=== PATIENT | male | born 1950 | race Caucasian/White ===

== ENCOUNTER 2016-09-08 19:03 | Emergency (ER) | payer SELFPAY ==
[2016-09-08 19:48] LABS: BASOPHILS 0.2 % (0.0-2.0); EOSINOPHILS 2.6 % (0-7); HEMATOCRIT 33.5 % (42.0-54.0); HEMOGLOBIN 10.5 g/dL (13.5-17.5); IMMATURE GRANULOCYTES 0.2 % (0-5); MCH 30.5 pg (26.0-34.0); MCHC 31.3 g/dL (31.0-37.0); MCV 97.4 fL (80.0-100.0); MEAN PLATELET VOLUME 9.6 fL (7.4-10.4); PLATELET COUNT 114 10x3/uL (130-400); RBC 3.44 10x6/uL (4.20-6.10); RDW 17.8 % (11.5-14.5); WBC 6.5 10x3/uL (4.8-10.8)
[2016-09-08 20:09] LABS: INR 1.02 (0.85-1.17); PROTIME 13.2 SECONDS (11.6-15.0)
[2016-09-08 20:10] LABS: APTT 34.1 SECONDS (22.8-39.4)
[2016-09-08 20:23] LABS: ALKALINE PHOSPHATASE 76 U/L (46-116); ALT (SGPT) 14 U/L (10-68); BILIRUBIN - TOTAL 0.31 mg/dL (0.2-1.3); CALC OSMOLALITY 283 mosm/kg (275-300); CALCIUM 8.2 mg/dL (8.5-10.1); CARBON DIOXIDE 28.7 mmol/L (21.0-32.0); CHLORIDE - SERUM 108 mmol/L (98-107); GLUCOSE 88 mg/dL (74-106); POTASSIUM - SERUM 3.5 mmol/L (3.5-5.1); PROTEIN - SERUM 5.2 g/dL (6.4-8.2); SODIUM 144 mmol/L (136-145); UREA NITROGEN 8 mg/dL (7-18); eGFR NON AFRICAN AMERICAN 79 mL/min (90-120)
[2016-09-08 20:28] LABS: APPEARANCE HAZY (CLEAR); BILIRUBIN NEGATIVE (NEGATIVE); COLOR DK YELLOW (YELLOW); GLUCOSE NEGATIVE (NEGATIVE); KETONE NEGATIVE (NEGATIVE); LEUKOCYTE ESTERASE 2+ (NEGATIVE); NITRITE NEGATIVE (NEGATIVE); PROTEIN TRACE mg/dL (NEGATIVE); SPECIFIC GRAVITY 1.015 (1.005-1.020); UROBILINOGEN NORMAL (NORMAL)
[2016-09-08 20:29] LABS: BACTERIA MODERATE /hpf (NONE SEEN); RED CELLS - URINE >50 /hpf (0-5)
== END 2016-09-08 21:56 | disposition home or self-care (01) ==
LOC: D.ER 19:03
PROVIDERS: Emergency Medicine
DX: R31.9 Hematuria, unspecified (principal); S37.39XA Other injury of urethra, initial encounter; X58.XXXA Exposure to other specified factors, initial encounter; Y93.89 Activity, other specified; Y92.89 Other specified places as the place of occurrence of the external cause; N39.0 Urinary tract infection, site not specified; F17.200 Nicotine dependence, unspecified, uncomplicated

== ENCOUNTER 2018-11-25 07:20 | Outpatient (CLI) | payer MEDICARE | END 2018-11-25 13:51 | disposition home or self-care (01) | LOC: D.SP 07:20 | DX: E27.9 Disorder of adrenal gland, unspecified (principal); Z01.812 Encounter for preprocedural laboratory examination ==

== ENCOUNTER → 2018-12-07 09:36 | Outpatient (CLI) | payer MEDICARE ==
[2018-11-25 09:21] VITALS: BMI 26.6
[~2018-12-07 09:36] MED LIST: CENTRUM MEN'S1 EACH PO; CRESTOR40 MG PO; HCTZ25 MG PO; LEVOXYL25 MCG PO; RANITIDINE HCL150 M1 PO; REMERON30 MG PO; TOPROL XL100 MG PO; TRAZODONE HCL150 MG PO
== END | disposition home or self-care (01) ==
LOC: D.US 11-23 08:30 → D.RAD 11-23 08:30 → D.US 11-23 09:00 → D.RAD 11-23 09:30 → D.US 09:36
PROVIDERS: ATTEND Thoracic Surgery (Cardiothoracic Vascular Surgery)
DX: I65.23 Occlusion and stenosis of bilateral carotid arteries (principal); I73.9 Peripheral vascular disease, unspecified; J90 Pleural effusion, not elsewhere classified

== ENCOUNTER → 2018-12-21 09:31 | Outpatient (CLI) | payer MEDICARE ==
[2018-11-25 09:21] VITALS: BMI 26.6
== END | disposition home or self-care (01) ==
LOC: D.CT 09:31
PROVIDERS: ATTEND Internal Medicine Cardiovascular Disease
DX: I65.23 Occlusion and stenosis of bilateral carotid arteries (principal)

== ENCOUNTER → 2019-06-16 09:55 | Outpatient (CLI) | payer MEDICARE ==
[2018-11-25 09:21] VITALS: BMI 26.6
== END | disposition home or self-care (01) ==
LOC: D.CT 09:55
PROVIDERS: ATTEND Thoracic Surgery (Cardiothoracic Vascular Surgery)
DX: I71.4 Abdominal aortic aneurysm, without rupture (principal)

== ENCOUNTER 2019-07-21 08:22 | Inpatient (IN) | payer MEDICARE, OTHER ==
[~2019-07-21] VITALS: Ht 175.3 cm; Wt 73.1 kg
[2019-07-21] MEDS ORDERED: SYNTHROID50 MCG PO (08:59)
[2019-07-21 10:06] LABS: BASOPHILS 0.1 % (0-2); HEMOGLOBIN 15.4 g/dL (13.5-17.5); IMMATURE GRANULOCYTES 0.1 % (0-5); LYMPHOCYTES 20.6 % (15-50); MCH 30.6 pg (26.0-34.0); MCHC 33.5 g/dL (31.0-37.0); MCV 91.3 fL (80.0-100.0); MEAN PLATELET VOLUME 10.3 fL (7.4-10.4); MONOCYTES 6.1 % (2-11); NEUTROPHILS 71.1 % (40-80); PLATELET COUNT 147 10x3/uL (130-400); RBC 5.04 10x6/uL (4.20-6.10); RDW 14.5 % (11.5-14.5); WBC 6.9 10x3/uL (4.8-10.8)
[2019-07-21 10:19] LABS: APTT 34.1 SECONDS (22.8-39.4); INR 0.95 (0.85-1.17); PROTIME 12.6 SECONDS (11.6-15.0)
[2019-07-21 10:20] LABS: ALBUMIN 3.4 g/dL (3.4-5.0); ANION GAP 8.5 mmol/L (8-16); BILIRUBIN - TOTAL 0.35 mg/dL (0.2-1.3); CALCIUM 8.3 mg/dL (8.5-10.1); CARBON DIOXIDE 32.9 mmol/L (21.0-32.0); CREATININE - SERUM 1.2 mg/dL (0.6-1.3); POTASSIUM - SERUM 4.4 mmol/L (3.5-5.1); PROTEIN - SERUM 6.8 g/dL (6.4-8.2)
[2019-07-21 11:34] LABS: APPEARANCE CLEAR (CLEAR); BILIRUBIN NEGATIVE (NEGATIVE); COLOR YELLOW (YELLOW); GLUCOSE NEGATIVE (NEGATIVE); KETONE NEGATIVE (NEGATIVE); NITRITE NEGATIVE (NEGATIVE); PROTEIN NEGATIVE (NEGATIVE); SPECIFIC GRAVITY 1.015 (1.005-1.020); UROBILINOGEN NORMAL (NORMAL)
[2019-07-25] VITALS (41 sets, daily range): BP systolic 88–166; BP diastolic 39–90; BMI 25.1; BMI 24.6
--- NOTE | 2019-07-25 01:44 | NUR ---
DR KIM CALLED AND NOTIFIED OF PATIENT BEING EXTREMELY ANXIUOS AND STATING HE CANT STAY DOWN. DR KIM SAID ITS OK TO LET HIM SIT ON THE SIDE OF THE BED.
--- NOTE | 2019-07-25 06:00 | NUR ---
PTS HR 138. SINUS TACH PER CM. GROIN CHECKED FOR HEMATOMA AND VERIFIED PERIPHERAL PULSES. PT DENIES PAIN. STATES THAT HE FEELS FINE.
--- NOTE | 2019-07-25 06:50 | NUR ---
PATIENT AMBULATED TO REST ROOM BY COMMUNICATIONS PLANNER
--- NOTE | 2019-07-25 09:40 | NUR ---
PT RECIEVED FROM SURGERY VIA BED. MONITOR EQUIP ESTABLISHED. VSS. CLEVEPREX BEING TITRATED TO KEEP SBP<140. R GROIN DRSG CDI, NO HEMATOMA. PPP. PT IS LETHARGIC BUT ANSWERS QUESTIONS AND FOLLOWS COMMANDS. DENIES PAIN.
--- NOTE | 2019-07-25 10:30 | NUR ---
PT IS ANXIOUS. STATES THAT HE CANT LAY FLAT. POSITIONED WITH PILLOWS FOR SUPPORT. MORE CALM NOW.
--- NOTE | 2019-07-25 12:30 | NUR ---
PT FREQUENTLY ATTEMPTING TO GET UP. REQUIRING A NURSE TO BE AT BEDSIDE CONTINOUSLY. BED ALARMS ARE ON. PT INSISTING HE CANT LAY FLAT FOR MUCH LONGER
--- NOTE | 2019-07-25 13:33 | NUR ---
0600 NOTIFIED DENISA IN OR AND DR BECKWITH THAT H AND P WAS OUT OF DATE. DR COPELAND TOOK TO HOLDING TO START ART LINE.
--- NOTE | 2019-07-25 14:15 | NUR ---
DR KIM AT BEDSIDE. PT HAS BEEN UP ON THE SIDE OF THE BED. HE IS NOW BACK IN BED WITH HOB ELEVATED. ORDERS TO WEAN CLEVEPREX OFF AND THEN DC A LINE, DC IV FLUID, OK FOR PT TO BE OOB.
--- NOTE | 2019-07-25 18:07 | NUR ---
CALLED DR KIM AND NOTIFED HIM OF HR 138. NEW ORDER FOR LOPRESSOR 2.5MG IV X 1 NOW AND CALL BACK IF HR REMAINS ABOVE 120.
--- NOTE | 2019-07-25 18:38 | NUR ---
DR KIM CALLED AND NOTIFIED OF HR REMAINING 138. ORDER RECIEVED FOR REPEAT LOPRESSOR 2.5 MG IV AND OBTAIN EKG.
--- NOTE | 2019-07-25 18:49 | NUR ---
CALLED DR KIM AND UPDATED HIM ON DECREASED HR OF 75.
--- NOTE | 2019-07-25 19:00 | NUR ---
BEDSIDE REPORT AND SHIFT ASSESSMENT COMPLETE, SEE FLOWSHEET. VSS, NO SIGNS OF DISTRESS NOTED. R GROIN INCISION, DRESSING CDI, SITE SOFT NO SIGNS OF HEMATOMA. R JUGULAR CVL PATENT, SALINE LOCKED. PEDAL PULSES PALP. PT ALERT AND ORIENTED, DENIES ANY NEEDS AT THIS TIME. CALL LIGHT IN REACH, BED IN LOWEST POSITION. WILL MONITIOR.
--- NOTE | 2019-07-25 21:00 | NUR ---
MEDS GIVEN PER MAR.
--- NOTE | 2019-07-25 22:00 | NUR ---
PT RESTLESS, MOVING FROM SIDE TO SIDE IN BED. INSTRUCTED TO KEEP STILL TO CHECK B/P, PT UNABLE TO STAY STILL.
--- NOTE | 2019-07-25 23:00 | NUR ---
REASSESSMENT COMPLETE, SEE FLOWSHEET. R MARQUES SITE SOFT, DRESSING CDI, NO SIGNS OF HEMATOMA. BILAT PEDAL PULSES PALP. FALCON EMPTIED, 850 ML CLEAR YELLOW UOP. PT LETHARGIC, SLOW TO ANSWER BUT WILL ANSWER APPROPRIATELY. BED IN LOWEST POSITION, CALL LIGHT IN REACH AND BED ALARM ON.
[2019-07-26] VITALS (14 sets, daily range): BP systolic 98–150; BP diastolic 31–81; Ht 175.3 cm; Wt 73.1 kg
--- NOTE | 2019-07-26 | NUR ---
PT ATTEMPTING TO GET OOB. STATES HE HAS TO HAVE A BM. MACIEJ MARCOS ASSISTED PT TO RESTROOM AND BACK TO BED.
--- NOTE | 2019-07-26 02:15 | NUR ---
ASSISTED PT TO RESTROOM AND BACK TO BED.
--- NOTE | 2019-07-26 03:00 | NUR ---
REASSESSMENT COMPLETE, SEE FLOWSHEET. R GROIN INCISION DRESSING CDI, SITE SOFT. PEDAL PULSES PALP. BED ALARM ON, CALL LIGHT IN REACH.
[2019-07-26 05:45] LABS: HEMATOCRIT 39.3 % (42.0-54.0); HEMOGLOBIN 13.1 g/dL (13.5-17.5); MCH 30.3 pg (26.0-34.0); MCHC 33.3 g/dL (31.0-37.0); MCV 90.8 fL (80.0-100.0); MEAN PLATELET VOLUME 10.1 fL (7.4-10.4); RBC 4.33 10x6/uL (4.20-6.10); RDW 14.9 % (11.5-14.5); WBC 9.8 10x3/uL (4.8-10.8)
--- NOTE | 2019-07-26 05:50 | NUR ---
ASSISTED PT TO RESTROOM. STATES HE WOULD LIKE TO GO HOME TODAY AND I TOLD HIM HE WILL HAVE TO TALK TO MD. PT AMBULATED BACK TO BEDSIDE CHAIR. CALL LIGHT IN REACH.
[2019-07-26 06:05] LABS: ANION GAP 9.3 mmol/L (8-16); CALCIUM 7.8 mg/dL (8.5-10.1); CARBON DIOXIDE 28.7 mmol/L (21.0-32.0); CREATININE - SERUM 1.1 mg/dL (0.6-1.3)
--- NOTE | 2019-07-26 08:00 | NUR ---
PT SITTING IN CHAIR AT BEDSIDE. DENIES PAIN. R GROIN DRSG CDI. NO SWELLING. DENIES PAIN. PPP. SB-SR PER CM
--- NOTE | 2019-07-26 09:01 | OP ---
PATIENT NAME: RODNEY MUNOZ MEDICAL RECORD: [id number] :50 LOCATION:D.CVI D.CV04 ADMISSION DATE:07/25/19 SURGEON: RODNEY KIM MD DATE OF OPERATION: 07/25/2019 SURGEON: Rodney Kim MD AB INITIO ETL DEVELOPER: JAREN Del Toro MD PROCEDURE PERFORMED: 1. Right iliac angioplasty. 2. Placement of a right limb extension of endovascular repair. 3. Aortogram times 2. 4. Percutaneous closure. PREOPERATIVE DIAGNOSES: Right iliac stenosis, status post emergent endovascular repair of abdominal aortic aneurysm with right lower extremity claudication. POSTOPERATIVE DIAGNOSES: Right iliac stenosis status post emergent endovascular repair of abdominal aortic aneurysm with right lower extremity claudication. ANESTHESIA: General endotracheal anesthesia. ESTIMATED BLOOD LOSS: Minimal. COMPLICATIONS: None. SPECIMENS: None. CONDITION: Stable. DISPOSITION: CV ICU. OPERATIVE FINDINGS: 1. Good Doppler right posterior tibial and slightly less, but adequate Doppler right dorsalis pedis before and after the procedure. 2. Percutaneous access right common femoral artery utilizing ultrasound guidance and micropuncture technique. A 6-[place] sheath placed and the right limb of the graft cannulated. 3. Pigtail catheter placed for aortogram revealing moderate stenosis within the right limb of the graft and a severe stenosis just beyond the end of the graft. The right internal iliac was occluded and filled by a small collateral retrograde, but it appeared that the right iliac origin had been covered by the previous endovascular repair of abdominal aortic aneurysm. 4. A 16 x 10 x 199 mm graft placed. 5. Exchange for a 12 sheath and graft angioplasty performed and then angioplasty at the outflow with prior to deploying the graft also 8 x 40 balloon was used at the stenosis site. Operative angiogram revealed no residual stenosis. 6. Percutaneous closure with 1 ProGlide. OPERATIVE INDICATION: Right iliac stenosis and claudication. PROCEDURE IN DETAIL: As noted above, percutaneous access was obtained. Wire was placed. Angiogram performed. Stiff wire placed. Balloon angioplasty of OPERATIVE REPORT [id number] MUNOZ,RODNEY LOBITO the iliac just beyond the graft and the graft was placed carefully. It landed well. Reliant balloon was used in the body of the graft and the balloon was again used at the outflow. Completion angiogram was good, exchanged for a ProGlide, which was deployed. No apparent bleeding. Good Doppler pulses. Heparin in total of 7500 was given after accessing the right groin and reversed with protamine. The patient to ICU stable. TRANSINT:[id number] Voice Confirmation ID: [id number] DOCUMENT ID: [id number] RODNEY KIM MD at 0901 CC: [id number] DICTATION DATE: 07/25/19 1024 MEDICAL ART THERAPIST: 07/25/19 1257 ADM IN [place] [id number] [place] [address]
--- NOTE | 2019-07-26 09:30 | NUR ---
EZEKIEL ROSE. PORT WASHING MACHINE ASSEMBLER ON. PT AMBULATED FOR APPROX 4 MINUTES WITHOUT ANY DIFFICULTY. HE STATES THAT HIS LEG IS MUCH BETTER THAN BEFORE SURGERY.
--- NOTE | 2019-07-26 10:00 | NUR ---
SPOKE WITH KASSI FROM CARDIOLOGY. SHE SAIS IT IS OK TO RESTART THE TOPROL XL AT 50MG BID STARTING THIS AFTERNOON.
[2019-07-26] MEDS ORDERED: PLAVIX75 MG PO (10:23)
[2019-07-26] MEDS ORDERED: ASPIRIN81 MG PO (10:27)
--- NOTE | 2019-07-26 12:00 | NUR ---
TIM COLLIER PT TOLERATED WELL.
--- NOTE | 2019-07-26 12:45 | NUR ---
PT VOIDED IN URINAL. HE IS DRESSED AND READY TO GO. HIS FRIEND IS COMING TO PICK HIM UP.
--- NOTE | 2019-07-26 15:55 | MORECARE ---
CASE MANAGEMENT DISCHARGE SUMMARY PATIENT: DAVID MUNOZ UNIT: [id number] ADM DATE: 07/25/19 AGE: 69 : 50 SEX: M ROOM/BED: [facility] AUTHOR: JOON RICHARDS PHYSICIAN: REFERRING PHYSICIAN: DAVID KIM MD DATE OF SERVICE: 07/26/19 Discharge Plan Patient Name: DAVID MUNOZ Facility: [facility]:[place] : 1950 Planned Disposition: Home Anticipated Discharge Date: Discharge Date: 07/26/2019 Expected LOS: Initial Reviewer: [email or web address] Initial Review Date: 07/25/2019 Generated: 07/26/19 4:55 pm Patient Name: DAVID MUNOZ Page [id number] at 1555 All edits/amendments must be made on the electronic document DICTATION DATE: 07/26/19 1555 BESSEMER REGULATOR: CHERYL 07/26/19 1555 RPT#: [id number] DC DATE:07/26/19 STATUS: DIS IN [facility] [address] [place] [address] END OF REPORT
--- NOTE | 2019-07-26 16:05 | MORECARE ---
CASE MANAGEMENT DISCHARGE SUMMARY PATIENT: DAVID MUNOZ UNIT: [id number] ADM DATE: 07/25/19 AGE: 69 : 50 SEX: M ROOM/BED: [facility] AUTHOR: JOON RICHARDS PHYSICIAN: REFERRING PHYSICIAN: DAVID KIM MD DATE OF SERVICE: 07/26/19 Discharge Plan Patient Name: DAVID MUNOZ Facility: [facility]:[place] : 1950 Planned Disposition: Home Anticipated Discharge Date: Discharge Date: 07/26/2019 Expected LOS: Initial Reviewer: [email or web address] Initial Review Date: 07/25/2019 Generated: 07/26/19 5:05 pm DCPIA - Discharge Planning Initial Assessment Updated by [email or web address]: Beata Lopez on 07/26/19 4:02 pm * Is the patient Alert and Oriented? Yes * How many steps to enter\exit or inside your home? * [facility] * [facility] * Preadmission Environment Home Alone * ADLs Independent * Equipment Walker Wheelchair * Other Equipment CANE, MED ALERT * List name and contact numbers for known caregivers / representatives who currently or will assist patient after discharge: LANCE BUTT - [phone] * Verbal permission to speak to the caregivers and representatives has been obtained from the patient. Yes * Community resources currently utilized None * Additional services required to return to the preadmission environment? No * Can the patient safely return to the preadmission environment? Yes * Has this patient been hospitalized within the prior 30 days at any hospital? No Last DP export: 07/26/19 2:55 p Patient Name: DAVID MUNOZ Page [id number] at 1605 All edits/amendments must be made on the electronic document DICTATION DATE: 07/26/19 1605 MATERIAL COMBINER: CHERYL 07/26/19 1605 RPT#: [id number] DC DATE:07/26/19 STATUS: DIS IN [facility] [address] [facility] [place] [address] END OF REPORT
--- NOTE | 2019-07-26 16:22 | MORECARE ---
CASE MANAGEMENT DISCHARGE SUMMARY PATIENT: DAVID MUNOZ UNIT: [id number] ADM DATE: 07/25/19 AGE: 69 : 50 SEX: M [facility] AUTHOR: SUSIE,DOC PHYSICIAN: REFERRING PHYSICIAN: DAVID KIM MD DATE OF SERVICE: 07/26/19 Discharge Plan Patient Name: DAVID MUNOZ Facility: [facility]:[place] : 1950 Planned Disposition: Home Anticipated Discharge Date: Discharge Date: 07/26/2019 Expected LOS: Initial Reviewer: [email or web address] Initial Review Date: 07/25/2019 Generated: 07/26/19 5:21 pm Comments DCP- Discharge Planning Updated by [email or web address]: Beata Lopez on 07/26/19 3:[address] Patient Name: DAVID MUNOZ Admission Status: Urgent Accout number: [id number] Admission Date: 07-25-2019 : 1950 Admission Diagnosis: Attending: DAVID KIM Current LOS: 1 Anticipated DC Date: Planned Disposition: Home Primary Insurance: [employer] PPO MCR [employer] Discharge Planning Comments: CM met with patient at bedside after explaining CM role and obtaining verbal consent. Patient lives at home alone where he is independent with his care and plans to return there upon discharge. Patient feels this would be a safe discharge. CM discussed availability / needs of home health and medical equipment. Patient denies any discharge needs at this time. Patient states he will have his family drive him home upon discharge. CM will continue to follow and assist as needed with discharge planning / needs. Quantity Surveyor: Beata Lopez DCPIA - Discharge Planning Initial Assessment Updated by [email or web address]: Beata Lopez on 07/26/19 4:02 pm * Is the patient Alert and Oriented? Yes * How many steps to enter\exit or inside your home? * [facility]CP [facility] * [facility] * Preadmission Environment Home Alone * ADLs Independent * Equipment Walker Wheelchair * Other Equipment CANE, MED ALERT * List name and contact numbers for known caregivers / representatives who currently or will assist patient after discharge: LANCE BUTT - [phone] * Verbal permission to speak to the caregivers and representatives has been obtained from the patient. Yes * Community resources currently utilized None * Additional services required to return to the preadmission environment? No * Can the patient safely return to the preadmission environment? Yes * Has this patient been hospitalized within the prior 30 days at any hospital? No Last DP export: 07/26/19 3:05 p Patient Name: DAVID MUNOZ Page 33349 at 1622 All edits/amendments must be made on the electronic document DICTATION DATE: 07/26/19 1621 SOFTWARE PACKAGER: CHERYL 07/26/19 1621 RPT#: [id number] DC DATE:07/26/19 STATUS: DIS IN [facility] [address] [place] [address] END OF REPORT
== END 2019-07-26 13:10 | disposition home or self-care (01) | DRG 253 ==
LOC: D.SDCHOLD 07-25 05:00 → D.CVICU 07-25 05:00 → D.SDCHOLD 07-25 07:30 → D.CVICU 07-25 10:24
PROVIDERS: ADMIT Thoracic Surgery (Cardiothoracic Vascular Surgery); ATTEND Thoracic Surgery (Cardiothoracic Vascular Surgery)
PROC: 047E3DZ Dilation of Right Internal Iliac Artery with Intraluminal Device, Percutaneous Approach (ICD-10-PCS; principal; 2019-07-25 07:30)
DX: I77.1 Stricture of artery (principal); I48.92 Unspecified atrial flutter; I48.91 Unspecified atrial fibrillation; I25.10 Atherosclerotic heart disease of native coronary artery without angina pectoris; F17.200 Nicotine dependence, unspecified, uncomplicated; I10 Essential (primary) hypertension

== ENCOUNTER → 2019-12-04 12:24 | Outpatient (CLI) | payer MEDICARE ==
[2019-07-26 10:41] VITALS: BMI 24.6
[~2019-12-04 12:24] MED LIST changes: +ASPIRIN81 MG PO; +PLAVIX75 MG PO; +SYNTHROID50 MCG PO
== END | disposition home or self-care (01) ==
LOC: D.US 12:24
PROVIDERS: ATTEND Thoracic Surgery (Cardiothoracic Vascular Surgery)
DX: I65.23 Occlusion and stenosis of bilateral carotid arteries (principal)

== ENCOUNTER → 2020-04-22 18:16 | Outpatient (CLI) | payer MEDICARE ==
[2019-07-26 10:41] VITALS: BMI 24.6
[2020-04-22 20:24] LABS: ALBUMIN 3.6 g/dL (3.4-5.0); BILIRUBIN - DIRECT 0.07 mg/dL (0.00-0.30); BILIRUBIN - INDIRECT 0.22 mg/dL (0.00-1.00); BILIRUBIN - TOTAL 0.29 mg/dL (0.2-1.3); CHOL - HDL RATIO 4.1 ratio (2.3-4.9); LDL-HDL RATIO 2.7 ratio (1.5-3.5); PROTEIN - SERUM 6.4 g/dL (6.4-8.2)
== END | disposition home or self-care (01) ==
LOC: D.LABREF 18:16
PROVIDERS: ATTEND Thoracic Surgery (Cardiothoracic Vascular Surgery)
DX: I25.10 Atherosclerotic heart disease of native coronary artery without angina pectoris (principal); E78.5 Hyperlipidemia, unspecified